=== PATIENT | female | born 1995 | race Caucasian/White ===

== ENCOUNTER 2018-10-27 12:11 | Inpatient (IN) | payer OTHER ==
[~2018-10-27] VITALS: Ht 157.5 cm; Wt 71.8 kg
[2018-10-29] VITALS (18 sets, daily range): BP systolic 97–122; BP diastolic 48–96; PULSE 71–112; TEMP 97.6–98.3
--- NOTE | 2018-10-29 05:23 | NUR ---
HER ANG SPOUSE FOR ELECTIVE C/S DELIVERY
--- NOTE | 2018-10-29 05:24 | NUR ---
ADMISSION PROCEEDURES BEGUN, EFM , IV START, INFORMED CONSENTS
[2018-10-29 05:59] LABS: BASO # 0.1 (0.0-0.2); BASO % 0.9 % (0.0-2.0); EOS # 0.1 (0.0-0.7); EOS % 1.7 % (0-4.0); GRAN # 5.5 (1.4-6.5); GRAN % 70.4 % (42.2-75.2); HEMOGLOBIN 10.2 g/dl (12.5-16.0); LYMPH # 1.5 (1.2-3.4); LYMPH % 19.3 % (20.0-51.0); MEAN CELL VOLUME 67 fl (80.0-100.0); MEAN CORPUSCULAR HEMOGLOBIN 22 pg (27.0-31.0); MEAN CORPUSCULAR HGB CONC 32 g/dl (33.0-37.0); MONO # 0.6 (0.1-0.6); MONO % 7.1 % (1.7-9.3); PLATELET COUNT 164 K/mm3 (130-400); RED BLOOD COUNT 4.74 M/mm3 (4.10-5.30); REDCELL DISTRIBUTION WIDTH-CV 15.3 % (11.5-14.5)
[2018-10-29 06:01] LABS: HEMATOCRIT 31.9 % (37.0-47.0)
[2018-10-29] MEDS ORDERED: PRENATAL MVI (06:39)
[2018-10-29] MEDS ORDERED: TYLENOL 500MG500 MG PO (06:40)
--- NOTE | 2018-10-29 06:50 | NUR ---
0653: Patient off the monitor to void. 0702: Back on monitor. 0715: Patient off monitor and ambulates to OR. 0721: Patient on monitor in OR and sits up for placement for Spinal and tolerates well. 0733: Patient off monitor and prepped for surgery.
[2018-10-30 03:30] VITALS: BP 106/55; PULSE 75; TEMP 98
[2018-10-30 06:50] VITALS: BP 114/56; PULSE 78; TEMP 97.7
[2018-10-30 16:10] VITALS: BP 102/79; PULSE 91; TEMP 97.9
[2018-10-30 20:15] VITALS: BP 118/69; PULSE 97; TEMP 98
[2018-10-31 07:10] VITALS: BP 108/60; PULSE 100; TEMP 97.6
[2018-10-31 16:05] VITALS: BP 115/62; PULSE 109; TEMP 97.6
[2018-10-31 22:00] VITALS: BP 111/57; PULSE 97; TEMP 97.9
[2018-11-01 07:00] VITALS: BP 114/64; PULSE 78; TEMP 98.4
[2018-11-01] MEDS ORDERED: PERCOCET 325 MG1 TA2 PO (12:58)
[2018-11-01] MEDS ORDERED: IBU600 MG PO (12:58)
== END 2018-11-01 13:45 | disposition home or self-care (01) | DRG 788 ==
LOC: OB 10-29 05:28 → LDR 10-29 06:46 → OB 11-01 13:45 → LDR 11-04 12:11
PROVIDERS: ADMIT Obstetrics & Gynecology
PROC: 10D00Z1 Extraction of Products of Conception, Low, Open Approach (ICD-10-PCS; principal; 2018-10-29)
DX: O75.89 Other specified complications of labor and delivery (principal); D56.3 Thalassemia minor; Z3A.39 39 weeks gestation of pregnancy; Z37.0 Single live birth; Z14.1 Cystic fibrosis carrier
CPT/HCPCS: J0690; J1885; J2175; J2370; J2405; J2590; J3010; J7120

== ENCOUNTER → 2018-11-03 | Outpatient (CLI) | payer OTHER ==
[~2018-11-03] MED LIST: IBU600 MG PO; PERCOCET 325 MG1 TA2 PO; PRENATAL MVI; TYLENOL 500MG500 MG PO
--- NOTE | 2018-11-03 16:04 | NUR ---
Pt, Keila Rollins, presents for outpatient consult with five day old baby girl, Andrew Rollins, after being referred by Dr. Maisha Loza because Andrew was 10% below weight at her appointment the morning. She is accompanied by her spouse and mother as well. Andrew was born on [birth year] by c/section and weighed 7#1.2oz (3210 gms). She reportedly had latching difficulty and has been nursing with a nipple shield. In the last 24 hours she has had 8 feedings, 8 voids, and 7 stools with the last one yellow/green as seen when bilirubin is being passed. Discharge 11/01/18 and Andrew weighed 6#7oz. Weight at Dr. Loza's office was 6#6oz. At this writing Andrew weighed 6#4oz (2834 gms). Pt reports milk supply was noticed in the usual time frame and that her breasts feel full at this time. Pt is assisted latching Andrew without the nipple shield. She latches easily and pt is able to repeat the latch without assistance. Frequent swallows are noted. After nursing the left side Andrew had a weight gain of 2oz. She latches to the second side and has an additional weight gain of 0.6oz, for a total intake at this feeding of 2.6oz. basics reviewed, including engorgement, collection and storage of breastmilk and working and expected weight gain going forward. POC: Continue at lease 8 times per 24 hours. Monitor voids and stools. If she struggles with latch, she may use nipple shield. F/U: Advised to weight check in two days but because of another appointment pt cannot return on that date to this clinic. She is advised to have a weight check with Dr. Loza on 11/05/18. Pt to contact this LC to discuss weight and further feeding/follow up plans as needed. Understanding verbalized, Questions invited and answered.
== END ==
LOC: LAC 14:54
DX: Z39.1 Encounter for care and examination of lactating mother (principal); Z71.89 Other specified counseling

== ENCOUNTER → 2018-11-09 | Outpatient (CLI) | payer OTHER ==
--- NOTE | 2018-11-09 10:27 | NUR ---
Pt, Keila Rollins, into the clinic with 11 day old Andrew for evaluation and weight check. Keila and Andrew were seen on 11/03/18 for a constulation due to being at a 10% weight loss after . Keila reports Andrew is eating every 2-3 hours throughout the day and reports diapers to be WNL. Andrew's weight on 10/29/18 was 7# 1.2 oz (3210 g) and discharge weight was noted as 6 # 7 oz on 11/01/18. On 11/03. Andrew's weight was noted as 6# 4 oz (2834 g). Today's prefeed weight was 6# 10.7 oz (3024 g), a gain of approx 1 oz in the last 6 days. While in clinic, Keila put Andrew to the breast. Appropriate latch and positioning noted. Regular audible swallows noted. Andrew nursed for approx 15 min from each breast and gained a total of 2.7 oz ( 76 g), Questions answered regarding pumping/storage for when Keila returns to work. Keila states they have introduced a bottle of EBM, LC encouraged Keila to pump at feedings Andrew received a bottle. Plan of care: Continue to feed ad danika. Return to clinic for further weight checks as desired or with any futher concerns. Questions invited and answered. Understanding verbalized.
== END ==
LOC: LAC 10:10
DX: Z39.1 Encounter for care and examination of lactating mother (principal); Z71.89 Other specified counseling

== ENCOUNTER → 2018-11-23 | Outpatient (CLI) | payer OTHER ==
--- NOTE | 2018-11-23 11:44 | NUR ---
Pt, Keilakim Rollins, presents to walk-in clinic for a latch check as she reports her baby girl, Andrew Rollins, has been more difficult to latch recently, especially at night. Andrew was born on [birth year] and weighed 7#1.2oz (3210 gms). At Walk-in clinic on 11/09/18 she weighed 6#10.7oz (3024 gms) At the appt. on 11/18/18 she weighed 7#5oz. Today she weighs 7#6.3oz (3354 gms) which is a gain of only 1.3oz in 5 days, but 11.8oz in two weeks per the clinic scale. An appointment was scheduled for Andrew with [facility] at 1230 today to compare scale weights. Review of "pinch and stuff" and releasing some over-fullness prior to latching made the latch easier. After nursing Andrew had a weight gain of 2.7oz (80 gms). Her weight after 2 stools was 7#7.8oz and they will report the weight at the doctors to verify if the weight gain has slowed below acceptable ranges. Pt reports 8+ feedings per day, QS voids and stools, and milk production appears to be abundant. Discussed management of overfullnes prior to latching, same-side nursing longer at each feeding before offering the second side. POC: weight check with [facility] to follow this appt. Comparision weight is 7#7.8oz. Continue to manage latch and over-fullness prior to latching, breastfeed ad danika. F/U: Anticipate next week at clinic. Questions invited and answered, pt verbalizes understanding.
== END ==
LOC: LAC 10:33
DX: Z39.1 Encounter for care and examination of lactating mother (principal); Z71.89 Other specified counseling

== ENCOUNTER → 2018-11-30 | Outpatient (CLI) | payer OTHER ==
--- NOTE | 2018-11-30 11:18 | NUR ---
Pt, Keila Rollins, presents for walk-in clinic with four week old baby girl,Andrew Rollins and her spouse Chavez Rollins. They have been follow with this LC for weights as there have been some latch difficulties. Andrew was born on [birth year] and weighed 7#1.2oz (3210 gms). Last week she weighed 7#6oz (3354 gms). Today she weighs 7#13.4oz (3556 gms), for an appropriate weight gain over the last week. Keila has worked with the latching suggestions learned last week and reports feedings have improved. She still nursed every 1.5 to 3 hours, has QS voids and stools. After nursing bilaterally, Andrew has a weight gain of 3oz. POC: continue ad danika. F/U: Family is relocating out of state this week, encouraged to call or email as needed. Questions invited and answered.
== END ==
LOC: OLC 10:12
DX: Z39.1 Encounter for care and examination of lactating mother (principal); Z71.89 Other specified counseling